=== PATIENT | female | born 1945 | race Caucasian/White ===

== ENCOUNTER → 2018-04-01 | Outpatient (CLI) | payer MEDICARE, BC ==
[~2018-04-01] MED LIST: ALBU90I INH; AMIT10 PO; AMLODIPINE; BECL25NI; CALTRATE PO; CETI5 PO; ENABLEX PO; ESOM20 PO; FAMO20 PO; FEXO60 PO; GARLIC TABS PO; GUAI600T33 PO; L-LYSINE PO; MONT10T PO; MULVITA PO; POTCHL20ER PO; PSORCON; SOLI5 PO; SPIR25 PO; TRIAOI IH; UBID100 PO
== END | disposition home or self-care (01) ==
LOC: PLD 10:30 → LAB SHORT 10:30
DX: D22.5 Melanocytic nevi of trunk (principal)
CPT/HCPCS: 88305

== ENCOUNTER 2018-04-16 12:05 | Day surgery (SDC) | payer MEDICARE, BC ==
[~2018-04-16] VITALS: Ht 147.3 cm; Wt 48.1 kg
[2018-04-16] MEDS ORDERED: ZYRTEC10 M1 PO (13:03)
[2018-04-16] MEDS ORDERED: FLONASE ALLERG9.9 ML (13:04)
[2018-04-16] MEDS ORDERED: POTCHL20ER PO (13:04)
[2018-04-16] MEDS ORDERED: MYRBETRIQ25 MG PO (13:05)
== END 2018-04-16 14:27 | disposition home or self-care (01) ==
LOC: ORSCSDS 12:05
PROVIDERS: Ophthalmology
PROC: 08RJ3JZ Replacement of Right Lens with Synthetic Substitute, Percutaneous Approach (ICD-10-PCS; principal; 2018-04-16 13:30)
DX: H25.11 Age-related nuclear cataract, right eye (principal); I10 Essential (primary) hypertension; Z86.718 Personal history of other venous thrombosis and embolism; Z79.899 Other long term (current) drug therapy
CPT/HCPCS: J2250; J7040; V2632

== ENCOUNTER 2018-04-30 09:40 | Day surgery (SDC) | payer MEDICARE, BC ==
[~2018-04-30] VITALS: Ht 147.3 cm; Wt 47.5 kg
[~2018-04-30 09:40] MED LIST changes: +FLONASE ALLERG9.9 ML; +MYRBETRIQ25 MG PO; +ZYRTEC10 M1 PO
[2018-04-30] MEDS ORDERED: SOLI5 PO (10:19)
== END 2018-04-30 12:04 | disposition home or self-care (01) ==
LOC: ORSCSDS 09:40
PROVIDERS: Ophthalmology
PROC: 08RK3JZ Replacement of Left Lens with Synthetic Substitute, Percutaneous Approach (ICD-10-PCS; principal; 2018-04-30 11:00)
DX: H25.12 Age-related nuclear cataract, left eye (principal); I10 Essential (primary) hypertension; J44.9 Chronic obstructive pulmonary disease, unspecified; K21.9 Gastro-esophageal reflux disease without esophagitis; Z79.899 Other long term (current) drug therapy
CPT/HCPCS: J2250; J3010; J7040; V2632

== ENCOUNTER → 2018-11-17 | Outpatient (CLI) | payer MEDICARE, BC ==
[2018-11-17 12:51] LABS: Adenovirus F 40/41 Not Detected (NOT DETECT); Astrovirus Not Detected (NOT DETECT); Campylobacter Sp Not Detected (NOT DETECT); Cryptosporidium Not Detected (NOT DETECT); Cyclospora Cayetanensis Not Detected (NOT DETECT); E. Coli O157 Not Detected (NOT DETECT); Entamoeba Histolytica Not Detected (NOT DETECT); Enteroaggregative E. coli-EAEC Not Detected (NOT DETECT); Enteropathogenic E. coli-EPEC Not Detected (NOT DETECT); Enterotoxigenic E. coli-ETEC Not Detected (NOT DETECT); Giardia Lamblia Not Detected (NOT DETECT); Norovirus GI/GII Not Detected (NOT DETECT); Plesiomonas Shigelloides Not Detected (NOT DETECT); Rotavirus A Not Detected (NOT DETECT); Salmonella Sp Not Detected (NOT DETECT); Sapovirus Not Detected (NOT DETECT); Shiga Toxin-prod E. coli-STEC Not Detected (NOT DETECT); Shigella/Enteroin E. coli-EIEC Not Detected (NOT DETECT); Vibrio Cholerae Not Detected (NOT DETECT); Vibrio Sp Not Detected (NOT DETECT); Yersinia Enterocolitica Not Detected (NOT DETECT)
[2018-11-18 14:27] LABS: Stool Occult Bld Immuno 1 Negative (NEGATIVE); Stool Occult Bld Immuno 2 Negative (NEGATIVE)
== END | disposition home or self-care (01) ==
LOC: LAB SHORT 12:49 → LAB 12:49
PROVIDERS: Internal Medicine Gastroenterology
DX: R19.7 Diarrhea, unspecified (principal); R10.84 Generalized abdominal pain
CPT/HCPCS: 82274; 87507

== ENCOUNTER 2021-07-03 10:47 | Emergency (ER) | payer MEDICARE, BC ==
[~2021-07-03] VITALS: Ht 147.3 cm; Wt 42.6 kg
[2021-07-03 11:33] LABS: BASOPHILS ABSOLUTE AUTO 0.08 K/mm3 (0.00-0.23); BASOPHILS PERCENT AUTO 3 % (0-2); EOSINOPHILS ABSOLUTE AUTO 0.05 K/mm3 (0.00-0.68); EOSINOPHILS PERCENT AUTO 2 % (0-6); Hematocrit 36.1 % (33.0-51.0); Hemoglobin 12.2 g/dL (11.5-16.0); IMMATURE GRAN ABSOLUTE AUTO 0.01 K/mm3 (0.00-0.10); IMMATURE GRAN PERCENT AUTO 0 % (0-1); LYMPHOCYTES ABSOLUTE AUTO 0.43 K/mm3 (0.84-5.20); LYMPHOCYTES PERCENT AUTO 16 % (21-46); MONOCYTES ABSOLUTE AUTO 0.38 K/mm3 (0.16-1.47); MONOCYTES PERCENT AUTO 14 % (4-13); Mean Corpuscular HGB 32.2 pg (26.0-34.0); Mean Corpuscular HGB Conc 33.8 g/dL (31.5-36.5); Mean Corpuscular Volume 95 fL (80-100); Mean Platelet Volume 9.3 fL (9.1-12.4); NEUTROPHILS ABSOLUTE AUTO 1.74 K/mm3 (1.96-9.15); NEUTROPHILS PERCENT AUTO 65 % (41-73); Platelet Count 165 K/mm3 (150-400); RDW Coefficient Variation 12.6 % (11.7-14.2); RDW Standard Deviation 44.1 fL (35.1-46.3); Red Blood Cell Count 3.79 M/mm3 (3.80-5.20); White Blood Cell Count 2.69 K/mm3 (4.00-11.30)
[2021-07-03 11:47] LABS: Alanine Aminotransfer (ALT/SGP 21 U/L (12-78); Albumin, Blood 3.8 g/dL (3.4-5.0); Albumin/Globulin Ratio 1.3 (0.8-1.8); Alk Phos 65 U/L (50-136); Anion Gap 1 mmol/L (6-16); Aspartate Aminotrans (AST/SGOT 18 U/L (12-37); Bilirubin, Total 0.6 mg/dL (0.1-1.0); Blood Urea Nitrogen 10 mg/dL (8-24); Bun/Creatinine Ratio 20.1 (12.0-20.0); CO2, Blood 43 mmol/L (21-32); Calcium, Blood 8.5 mg/dL (8.5-10.1); Chloride, Blood 81 mmol/L (98-108); Free Thyroxine 1.07 ng/dL (0.70-1.60); Globulin, Blood 2.9 g/dL (2.2-4.0); Glomerular Filtration Rate >60 (60-); Glucose, Blood 129 mg/dL (70-99); Magnesium, Blood 1.7 mg/dL (1.6-2.4); Potassium, Blood 3.4 mmol/L (3.5-5.5); Sodium, Blood 125 mmol/L (136-145); Total Protein, Blood 6.7 g/dL (6.4-8.2)
[2021-07-03] MEDS ORDERED: DIAZEPAM5 M2 PO (13:42)
[2021-07-03] MEDS ORDERED: TOLT2ER PO (13:43)
[2021-07-03] MEDS ORDERED: AMITRIPTYLINE H25 MG PO (13:43)
[2021-07-03 14:49] LABS: SARS-Cov-2 (COVID-19) PCR, MMC NEGATIVE (NEGATIVE)
== END 2021-07-03 15:45 | disposition home or self-care (01) ==
LOC: ER 10:47
PROVIDERS: Emergency Medicine
DX: R00.0 Tachycardia, unspecified (principal); E87.6 Hypokalemia; E22.2 Syndrome of inappropriate secretion of antidiuretic hormone; R39.15 Urgency of urination; R53.1 Weakness; I10 Essential (primary) hypertension; J44.9 Chronic obstructive pulmonary disease, unspecified; Z20.822 Contact with and (suspected) exposure to COVID-19; Z85.3 Personal history of malignant neoplasm of breast; Z91.013 Allergy to seafood; Z88.0 Allergy status to penicillin; Z88.2 Allergy status to sulfonamides; Z91.048 Other nonmedicinal substance allergy status; Z88.5 Allergy status to narcotic agent; Z91.018 Allergy to other foods
CPT/HCPCS: 36415; 71046; 80053; 83735; 84439; 84443; 85025; 93005; 93010; 99285-25; U0004

== ENCOUNTER 2021-07-20 09:46 | Inpatient (IN) | payer MEDICARE, BC ==
[~2021-07-20] VITALS: Ht 152.4 cm; Wt 41.7 kg
[~2021-07-20 09:46] MED LIST changes: +AMITRIPTYLINE H25 MG PO; +DIAZEPAM5 M2 PO; +TOLT2ER PO
[2021-07-20 10:17] LABS: Source, Urine Catheter
[2021-07-20 10:21] LABS: Appearance, Urine Clear (Clear); Bilirubin, Urine Neg (Neg); Blood, Urine 2+ (Neg); Color, Urine Yellow (P-Yellow); Glucose Qualitative, Urine Neg (Neg); Ketones, Urine 1+ (Neg); Leukocyte Esterase, Urine Neg (Neg); Nitrite, Urine Neg (Neg); Protein, Urine 2+ (Neg); Urobilinogen, Urine NORM (Normal)
[2021-07-20 10:28] LABS: White Blood Cells, Urine 0-2 /hpf (0-5)
[2021-07-20 10:29] LABS: Bacteria Few /hpf; Squamous Epithelial Cells Few /hpf (Few)
[2021-07-20 10:32] LABS: BASOPHILS ABSOLUTE AUTO 0.06 K/mm3 (0.00-0.23); BASOPHILS PERCENT AUTO 2 % (0-2); EOSINOPHILS ABSOLUTE AUTO 0.02 K/mm3 (0.00-0.68); EOSINOPHILS PERCENT AUTO 1 % (0-6); Hematocrit 35.4 % (33.0-51.0); Hemoglobin 12.6 g/dL (11.5-16.0); IMMATURE GRAN ABSOLUTE AUTO 0.01 K/mm3 (0.00-0.10); IMMATURE GRAN PERCENT AUTO 0 % (0-1); LYMPHOCYTES ABSOLUTE AUTO 0.41 K/mm3 (0.84-5.20); LYMPHOCYTES PERCENT AUTO 13 % (21-46); MONOCYTES ABSOLUTE AUTO 0.46 K/mm3 (0.16-1.47); MONOCYTES PERCENT AUTO 14 % (4-13); Mean Corpuscular HGB 32.7 pg (26.0-34.0); Mean Corpuscular HGB Conc 35.6 g/dL (31.5-36.5); Mean Corpuscular Volume 92 fL (80-100); Mean Platelet Volume 9.3 fL (9.1-12.4); NEUTROPHILS ABSOLUTE AUTO 2.31 K/mm3 (1.96-9.15); NEUTROPHILS PERCENT AUTO 71 % (41-73); Platelet Count 169 K/mm3 (150-400); RDW Coefficient Variation 12.2 % (11.7-14.2); RDW Standard Deviation 40.9 fL (35.1-46.3); Red Blood Cell Count 3.85 M/mm3 (3.80-5.20); White Blood Cell Count 3.27 K/mm3 (4.00-11.30)
[2021-07-20 11:28] LABS: Alanine Aminotransfer (ALT/SGP 28 U/L (12-78); Albumin/Globulin Ratio 1.3 (0.8-1.8); Alk Phos 69 U/L (50-136); Anion Gap 8 mmol/L (6-16); Aspartate Aminotrans (AST/SGOT 31 U/L (12-37); Bilirubin, Total 0.9 mg/dL (0.1-1.0); Blood Urea Nitrogen 11 mg/dL (8-24); Bun/Creatinine Ratio 23.4 (12.0-20.0); CO2, Blood 43 mmol/L (21-32); Calcium, Blood 8.8 mg/dL (8.5-10.1); Chloride, Blood 70 mmol/L (98-108); Creatinine, Blood 0.47 mg/dL (0.40-1.00); Globulin, Blood 3.1 g/dL (2.2-4.0); Glomerular Filtration Rate >60 (60-); Glucose, Blood 92 mg/dL (70-99); Potassium, Blood 2.9 mmol/L (3.5-5.5); Sodium, Blood 121 mmol/L (136-145); Total Protein, Blood 7.1 g/dL (6.4-8.2)
[2021-07-20] MEDS ORDERED: Amitriptyline H10 MG PO (13:35)
[2021-07-20] MEDS ORDERED: CETI5 PO (13:40)
[2021-07-20] MEDS ORDERED: FAMO20 PO (13:41)
[2021-07-20 14:35] LABS: Base Excess Venous 25.4 mmol/L; Bicarbonate Venous 45.8 mmol/L (24.0-30.0); PCO2 Venous 72.2 mmHg (38-42); pH Blood Venous 7.44 (7.34-7.37)
[2021-07-20 14:50] LABS: SARS-Cov-2 (COVID-19) PCR, MMC NEGATIVE (NEGATIVE)
--- NOTE | 2021-07-20 18:28 | NUR ---
PT TRANSFERRED TO [facility] DEPT APPROX 1645, VERY ANXIOUS & UPSET. PT CLINGING TO PERSONAL MEDICATION LIST BROUGHT FROM HOME. PT TEARFUL AND REPEATING HERSELF, CONCERNED ABOUT NEEDING TO VOID BUT NOT WANTING TO TRANSFER TO BSC OR UTILIZE BEDPAN. PUREWICK IN PLACE, BUT PT CONTINUALLY STRESSING ABOUT POSSIBLE DYSFUNCTION AND WETTING SHEETS. PT REASSURED WITH TWO FEMALE RN AND FEMALE MA, MULTIPLE OPTIONS OFFERED. PUREWICK REPOSITIONED WITH DISPOSABLE AND REUSABLE CHUX UNDER PT FOR PT COMFORT. PT PROVIDED WITH NEW GOWN, FRESH PILLOW & WARM BLANKET, RADIO AND IPAD. 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 MEDICATIONS RECONCILED WITH PT, BUT PT BECAME VERY UPSET, CRYING AND ROCKING BACK IN BED WHEN FORMULARY SUBSTITUTE WAS PROVIDED FOR ONE OF HER MEDS. PT INQUIRING ABOUT PO VS IV SHE "DOES NOT USE IV MEDS AT HOME." PT REORIENTED AND REASSURED THAT HER PCP AND ADMITTING PHYSICIAN WERE ORDERING HER MEDICATIONS WITH HER. PT MEDICATED WITH DIAZAPAM 2.5MG IVP. PT INITIALLY REFUSED DINNER, SHE NEEDED TO "GO OVER MY MEDICATIONS WITH THE RN." MEDICATIONS CONFIRMED WITH PT FOR THIRD TIME, BUT PT NOT AGREEABLE WITH FORM/SUB AND DOSES ORDERED. PT AGREES TO EAT DINNER, WHICH SHE DID INDEPENDENTLY, BUT CONTINUED TO REPEAT MEDICATIONS, USES AND MECHANISM OF ACTION. RN REASSURING AND ATTEMPTING TO CALM PT.
[2021-07-20 21:16] LABS: Anion Gap 4 mmol/L (6-16); Blood Urea Nitrogen 13 mg/dL (8-24); Bun/Creatinine Ratio 18.3 (12.0-20.0); CO2, Blood 43 mmol/L (21-32); Calcium, Blood 8.3 mg/dL (8.5-10.1); Chloride, Blood 74 mmol/L (98-108); Creatinine, Blood 0.71 mg/dL (0.40-1.00); Glomerular Filtration Rate >60 (60-); Glucose, Blood 128 mg/dL (70-99); Sodium, Blood 121 mmol/L (136-145)
--- NOTE | 2021-07-20 21:39 | NUR ---
DR. YI WAS NOTIFIED THAT PT. WANTED TO SPEAK WITH THE DRYenny ABOUT HER MEDS. PER DR. YI AM DRYenny WOULD GO OVER THOSE WITH HER. DR. YI WAS NOTIFIED THAT PT. WAS VERY ANXIOUS ABOUT WANTING HER GUAIFENESIN & ZYRTEC FROM HOME. PER DR. YI THAT WAS OK & OK TO TAKE SAME DOSAGES SHE DID AT HOME. T.O. FOR ZYRTEC LIQUID 5MG P.O. DAILY IN THE EVENING & LIQUID GUIAFENESIN EXPECTORANT 10ML P.O. THREE TIMES DAILY PRN. WAS CALLED & HE BROUGHT HER OWN ZYRTEC & GUAIFENESIN. PHARMACY WAS THEN NOTIFIED. ORDER WAS PUT IN COMPUTER. PER PHARMACY, PT. COULDN'T USE HER OWN GUAIFENESIN SINCE THEY HAD IT AVAILABLE BUT SINCE THEY DIDN'T HAVE LIQUID ZYRTEC IT WAS OK TO USE HER OWN IN WHICH THEY LABELED. DAKOTAH WAS ON HER LIST OF MEDS TO BE GIVEN BUT PT. DIDN'T WANT IT, SHE WANTED HER ZYRTEC. DR. YI WAS ALSO NOTIFIED OF THIS.
--- NOTE | 2021-07-21 02:32 | NUR ---
10ML NACL FLUSH BEFORE & AFTER LASIX. & AFTER POTASSIUM INFUSION WAS COMPLETE.
--- NOTE | 2021-07-21 02:36 | NUR ---
675 URINE OUTPUT FROM PURWICK DEVICE TO SUCTION. PURWICK DEVICE ALSO LEAKS SO LINEN CHANGES WERE DONE & PT.'S SKIN CLEANSED.
--- NOTE | 2021-07-21 03:03 | NUR ---
PT. COUGHING. CHECKED ON PT. PT. GIVEN A FEW SIPS OF WATER. PT. LAYING ON HER RIGHT SIDE. PT. VERBALIZED BEING WARM ENOUGH. CALL LIGHT WITHIN REACH.
--- NOTE | 2021-07-21 03:41 | NUR ---
PT. YELLING OUT "HELP ME, HELP ME." PT. UPSET SAYING SHE WAS CONFUSED SINCE SHE HASN'T SLEPT. PT. WAS SITTING ON COMMODE WHEN WENT TO HER ROOM. PT. REMINDED SHE NEEDED TO CALL WHEN SHE GOT UP. PT.LINENS WERE CLEAN & DRY, PT. HAD JUST LEAKED SOME URINE ON WAY TO COMMODE. DANNIE HOSE & SCD'S REPLACED. PT. WAS CLEANED UP & BACK TO BED. PT. WAS ABLE TO VOID 200ML SLIGHTLY CLOUDY YELLOW URINE. PURWICK REPLACED UNDER PT. CALL LIGHT WITHIN REACH. PT. VERBALIZED NOT NEEDING ANOTHER BLANKET THAT SHE WAS WARM ENOUGH. PT. BACK WITH HER EYES CLOSED WHEN LEAVING HER ROOM.
--- NOTE | 2021-07-21 05:15 | NUR ---
PT. CONTINUES TO SLEEP.
--- NOTE | 2021-07-21 05:42 | NUR ---
BED ALARM GOING OFF. PT. AT BEDSIDE GOING TO GET UP TO COMMODE. PT. ASSISTED UP TO COMMODE. NO URINE OUT. PT. ASSISTED BACK TO BED & WAS ASKING IF I KNEW "PALLAVI & LLUVIA." [facility] ASK PALLAVI & LLUVIA WHO, PT. STATED "PALLAVI & LLUVIA MANDUJANO." I INSTUCTED PT. THAT SHE WAS PALLAVI MANDUJANO. PT. ASKED IF HER WAS HERE IN THE HOSPITAL TOO. PT. INSTRUCTED THAT ONLY SHE WAS. PT. DIDN'T REMEMBER SHE WAS ADMITTED. PT. WAS REMINDED OF EVENTS OF ADMISSION. PT. DOES SAY SHE DOES REMEMBER BUT THEN STATES "I'M LOSING IT." PT. ASKED IF HER HAD CALLED, PT. REMINDED THAT SHE TALKED TO HER LAST NIGHT & THAT HE BROUGHT HER HER MEDS FROM HOME THAT SHE WANTED. PT. FORGETS TO USE CALL LIGHT.
[2021-07-21 05:47] LABS: BASOPHILS ABSOLUTE AUTO 0.07 K/mm3 (0.00-0.23); BASOPHILS PERCENT AUTO 1 % (0-2); EOSINOPHILS ABSOLUTE AUTO 0.04 K/mm3 (0.00-0.68); EOSINOPHILS PERCENT AUTO 1 % (0-6); Hematocrit 35.1 % (33.0-51.0); Hemoglobin 12.4 g/dL (11.5-16.0); IMMATURE GRAN ABSOLUTE AUTO 0.01 K/mm3 (0.00-0.10); IMMATURE GRAN PERCENT AUTO 0 % (0-1); LYMPHOCYTES ABSOLUTE AUTO 0.61 K/mm3 (0.84-5.20); LYMPHOCYTES PERCENT AUTO 12 % (21-46); MONOCYTES ABSOLUTE AUTO 0.69 K/mm3 (0.16-1.47); MONOCYTES PERCENT AUTO 14 % (4-13); Mean Corpuscular HGB 32.7 pg (26.0-34.0); Mean Corpuscular HGB Conc 35.3 g/dL (31.5-36.5); Mean Corpuscular Volume 93 fL (80-100); Mean Platelet Volume 9.5 fL (9.1-12.4); NEUTROPHILS ABSOLUTE AUTO 3.49 K/mm3 (1.96-9.15); NEUTROPHILS PERCENT AUTO 71 % (41-73); Platelet Count 165 K/mm3 (150-400); RDW Standard Deviation 41.5 fL (35.1-46.3); Red Blood Cell Count 3.79 M/mm3 (3.80-5.20); White Blood Cell Count 4.91 K/mm3 (4.00-11.30)
[2021-07-21 06:11] LABS: Alanine Aminotransfer (ALT/SGP 25 U/L (12-78); Albumin, Blood 3.6 g/dL (3.4-5.0); Albumin/Globulin Ratio 1.2 (0.8-1.8); Alk Phos 64 U/L (50-136); Anion Gap 5 mmol/L (6-16); Aspartate Aminotrans (AST/SGOT 29 U/L (12-37); Bilirubin, Total 0.6 mg/dL (0.1-1.0); Blood Urea Nitrogen 11 mg/dL (8-24); Bun/Creatinine Ratio 25.1 (12.0-20.0); CO2, Blood 43 mmol/L (21-32); Calcium, Blood 8.3 mg/dL (8.5-10.1); Chloride, Blood 74 mmol/L (98-108); Creatinine, Blood 0.44 mg/dL (0.40-1.00); Globulin, Blood 2.9 g/dL (2.2-4.0); Glomerular Filtration Rate >60 (60-); Glucose, Blood 85 mg/dL (70-99); Magnesium, Blood 1.8 mg/dL (1.6-2.4); Potassium, Blood 3.6 mmol/L (3.5-5.5); Sodium, Blood 122 mmol/L (136-145); Total Protein, Blood 6.5 g/dL (6.4-8.2)
--- NOTE | 2021-07-21 06:23 | NUR ---
PT. ANXIOUS ABOUT HER MEDICATIONS AT BEGINNING OF SHIFT & NEEDING TO TAKE HER OWN MEDICATIONS WHICH HER LIQUID ZYRTEC & GUAIFENESEN. HAD BROUGHT THOSE 2 MEDICATIONS FROM HOME & PER PHARMACY OK FOR PT. TO USE HER OWN ZYRTEC WHICH PHARMACY DOESN'T HAVE & SHE'S NOT ABLE TO USE HER OWN GUAIFENESEN SINCE PHARMACY HAS IT. PHARMACY LABELED THE ZYRTEC FOR USE HERE AT THE HOSPITAL. PT. ALSO ANXIOUS ABOUT NOT BEING ABLE TO SLEEP & WAS ALREADY WORRYING ABOUT NOT SLEEPING TOMORROW. PT. WAS REMINDED THAT DEALING WITH THE PRESENT WAS WHAT NEEDED TO BE DONE AT THIS TIME. PT. SLEEPING A LITTLE OFF & ON LAST NIGHT AFTER HER HOME MEDICATIONS WERE RESOLVED. PT. WAS NOT ABLE TO REMEMBER TO USE HER CALL LIGHT X2 & WAS TRYING TO GET OOB TO BSC WHEN THE BED ALARM GOES OFF. PT. WOKE UP CONFUSED THIS AM NOT KNOWING WHO SHE WAS OR WHERE SHE WAS AT. PT. WAS REMINDED OF WHO SHE WAS, THE DATE & HOW LONG SHE HAD BEEN HERE AT THE HOSPITAL. PT. STATED "I THINK I'M LOSING IT MORE." PT. THEN WANTED TO GO BACK TO SLEEP WHEN RN TOLD HER IT WAS 5:50 AM.
--- NOTE | 2021-07-21 07:41 | NUR ---
PT DENIED BREAKFAST TRAY AT THIS TIME. SHE WOULD LIKE TO GET SOME SLEEP. TRAY LEFT COVERED AND ON HER BEDSIDE TABLE.
--- NOTE | 2021-07-21 11:16 | NUR ---
ATTEMPTING TO REST. CONTINUES TO BE ANXIOUS. IS INCONTINENT OF URINE AT THIS TIME. HAS REFUSED LINEN AND GOWN CHANGE AT THIS TIME.
--- NOTE | 2021-07-21 12:25 | NUR ---
EATING LUNCH. WAS UNABLE TO CHEW THE HAMBURGER SO A TURKEY SAMDWICH AND STRAWBERRY YOGURT WERE SUBSTITUTED.
--- NOTE | 2021-07-21 13:41 | NUR ---
STILL QUITE ANXIOUS AND NEEDY. EAT WELL BUT DID NOT WANT THE LEFT OVER FOOD REMOVED. SHE IS CONCERNED SHE IS NOT RECEIVING ENOUGH PROTEIN. WAS PROVIDED WITH SOME YOGURT WELL PEANUT BUTTER TO HELP WITH HER CONCERNS.
--- NOTE | 2021-07-21 17:22 | NUR ---
EATING DINNER. LESS ANXIOUS BUT SEEMS TO BE HAVING DIFFICULTY REMEMBERING OUR EARLIER DISCUSSIONS ABOUT POSITIONING. SHE SEEMS TO BE MORE CONFUSED WHEN TASKED WITH DECISION MAKING, TASK OVERLOAD. DID REQUEST 3RD DOSE OF ROBITUSSIN TO AVOID DEVELOPING A COUGH.
--- NOTE | 2021-07-21 18:20 | NUR ---
PT KEPT THIS NURSE BUSY ALL SHIFT WITH HER ANXIETY AND NEEDS. SHE HAS A TOUGH TIME MAKING A DECISSION WHEN TASK LOADED. VSS ALL THROUGHOUT SHIFT. SHE HAS BEEN INCONTINENT OF URINE, NOT EVEN ATTEMPTING TO CALL FOR BEDPAN OR COMMODE. IS CONCERNED ABOUT TAKING DOSE OF RESTORIL THIS NOC. DR. BOLANOS RXD THIS BECAUSE SHE COMPLAINED ABOUT NOT SLEEPING. WANTED TO REFUSE HER PM LASIX BECAUSE IT WOULD CAUSE HER TO URINATE. EXPLAINED REASONING BEHIND LASIX AND SHE AGREED TO TAKE. STILL REMAINS ANXIOUS, ESPECIALLY ABOUT HER MEDICATIONS. DR. BOLANOS PLANNING FOR HER DISCHARGE HOME TOMORROW.
--- NOTE | 2021-07-21 21:39 | NUR ---
PT. C/O HAVING SOME INDIGESTION. PT. INSTRUCTED SHE ONLY HAD ZOFRAN ORDERED. PT. DENIES HAVING NAUSEA. PT. OFFERED SOME YAZ MIST BUT REFUSED. PT. INSTRUCTED THAT MAYBE IF SHE ATE A CRACKER IT WOULD HELP. PT. EATING A CRACKER. PT. WAS ALSO OFFERED ANOTHER SNACK BUT REFUSED.
--- NOTE | 2021-07-21 21:50 | NUR ---
PT. CALLED WITH CALL LIGHT WANTING HER PERICARE DONE. PT. INCONTINENT OF URINE. PT. ABLE TO CALL FOR OTHER NEEDS BUT WILL NOT CALL TO USE COMMODE OR BEDPAN EVEN THOUGH SHE HAS BEEN INSTRUCTED TO DO SO. PT. SKIN CLEANSED WITH WIPES & PULL UPS WITH A LARGE PERIPAD PLACED INSIDE. PT. TURNED TO HER RIGHT SIDE. BEDSIDE TABLE PLACED TO WHERE SHE CAN REACH HER WATER & BELONGINGS. PT. VERBALIZEDS HER INDIGESTION WAS BETTER AFTER EATING CRACKER BUT STILL WORRIED THAT HER GERD WILL CONTINUE. PT. REMINDED THAT SHE WAS GIVEN HER PEPCID EARLIER SO THAT SHOULD HELP. PT. VERBALIZED THAT RN WAS RUSHING HER TO TAKE HER SLEEPING PILL, PT. INSTRUCTED THAT SHE WANTED HER SLEEPING PILL AT 2200, PT. INSTRUCTED IT WAS THAT TIME. PT. REMINDED THAT SHE PROBABLY SHOULDN'T TAKE IT TOO LATE BECAUSE PROBABLY WOULDN'T WANT TO BE TIRED FOR WHEN SHE IS DISCHARGED. RN INSTRUCTED PT. THAT I WOULD CHECK BACK WITH HER AT 23OO & SEE IF SHE WANTED HER SLEEPING PILL THEN.
--- NOTE | 2021-07-21 22:32 | NUR ---
PT. INCONTINENT OF URINE. PERICARE DONE. PULLUPS WITH LARGE PERIPAD PLACED INSIDE CHANGED.
--- NOTE | 2021-07-21 23:07 | NUR ---
PT. CALLED WITH HER CALL LIGHT VERBALIZING SOMETHING ABOUT NURSE TALKING TO HER ABOUT SAFETY. PT. INSTRUCTED EARLIER THAT SHE NEEDED TO USE HER CALL LIGHT IF SHE NEEDED ANYTHING. THEN PT. STARTED VERBALIZING ABOUT SAFETY WITH WORDS & LETTERS. PT. INSTRUCTED NURSE WASN'T SURE WHAT SHE WAS TALKING ABOUT. NURSE INSTRUCTED PT. THAT SHE MIGHT HAVE BEEN DREAMING ABOUT IT. PT.AGREED TO TAKE HER SLEEPING PILL BUT PT. WAS UNABLE TO SWALLOW THE CAPSULE. PHARMACY WAS CALLED & OK TO OPEN IT & PUT IT IN SOME APPLESAUCE. PT. ABLE TO SWALLOW WITH SOME APPLESAUCE.
--- NOTE | 2021-07-21 23:49 | NUR ---
PT. SLEEPING NOW. HOB ELEVATED.
--- NOTE | 2021-07-22 01:33 | NUR ---
PT. COUGHING. BED ALARM GOING OFF & PT. TRYING TO GET OOB. PT.SAYING IT'S TIME TO GET UP. PT. REORIENTED THAT IT WAS 1:00AM. PT. ASSISTED BACK INTO BED WITH 2 ASSIST. THEN PT. VERBALIZED NEEDING TO GO TO THE BR. PT. ASSISTED TO BSC WITH ONE ASSIST. PT. ABLE TO VOID SLIGHTLY CLOUDY YELLOW URINE WITH SOME WHT SEDIMENT IN IT, 200ML. PT. WAS ALSO INCONTINENT OF LARGE AMT. OF URINE IN HER PULL UPS. PT. CLEANSED & PULL UPS WITH LARGE PERIPAD INSIDE CHANGED. PT. MEDICATED WITH HER GUAIFENESEN PER . ORDER. PT. TAKING SIPS OF WATER. CALL LIGHT IS WITHIN REACH. PT. REORIENTED THAT IT WAS 1:00 AM & SHE SHOULD TRY TO GET SOME MORE SLEEP. PT. STATED "OK". BED ALARM ON WITH SIDERAILS UP X3.
--- NOTE | 2021-07-22 02:54 | NUR ---
PT. SLEEPING. COUGHING HAS SUBSIDED.
--- NOTE | 2021-07-22 03:26 | NUR ---
BED ALARM GOING OFF. PT. OBSERVED TRYING TO GET OOB. PT. ASKED WHAT SHE NEEDED. PT. STATED "IT'S TIME TO GET UP." PT. REMINDED IT WAS 3:20 AM. PT. THEN WAS ASKED IF SHE WANTED TO USE THE COMMODE, PT. STATED "YES.", THEN PT. STOOD UP AT BEDSIDE WITH SBA & THEN STATED "I'LL GO BACK TO BED." PT. BACK TO BED LAYING ON HER LEFT SIDE. CALL LIGHT WITHIN REACH. BEDSIDE TABLE POSITIONED SO PT. COULD REACH HER WATER & BELONGINGS. PT. GIVEN A WARM BLANKET. BED ALARM ON & SIDERAILS UP X3.
--- NOTE | 2021-07-22 03:43 | NUR ---
BED ALARM GOING OFF AGAIN. PT. CRAWLING OOB. PT. VERBALIZES WANTING TO GET UP. PT. AGAIN REMINDED THAT IT WAS 3:30 AM. PT. THEN SAID SHE NEEDED TO USE THE BATHROOM. PT. WITH SBA UP TO COMMODE. PT. PULL UPS DRY. PT. VOIDED 225ML SLIGHTLY CLOUDY URINE. PT. WITH CALL LIGHT WITHIN REACH. BEDSIDE TABLE WITHIN REACH. SCD'S & DANNIE HOSE ON. BEDALARM ON. PT. NOW LAYING ON HER RIGHT SIDE.
--- NOTE | 2021-07-22 05:47 | NUR ---
PT. SLEEPING WHEN LAB HERE DRAWING HER BLOOD. VITALS TAKEN WITHOUT PT. WAKING UP. PT. THEN SHOOK BY RN, SAYING HER NAME. PT.STIRRED A LITTLE. PT. UP OFF & ON T.O. NIGHT AFTER GIVEN SLEEPING PILL. PT. CONFUSED OFF & ON TRYING TO CRAWL OOB AT TIMES. PT. UP TO BSC WITH ASSIST X2 DURING THE NIGHT WITH ALSO BEING INCONTINENT. BED ALARM ON. CALL LIGHT IS WITHIN REACH.
--- NOTE | 2021-07-22 06:10 | NUR ---
BED ALARM GOING OFF. PT. CRAWLING OOB. PT. VERBALIZES TIME TO GET UP. PT. REMINDED IT IS 600 IN THE MORNING & IT'S NOT TIME TO GET UP YET. PT. TRYING MULTIPLE TIMES TO CRAWL 00B THIS AM EVEN WHEN TOLD WHERE SHE WAS & WE DIDN'T WANT HER TO FALL. OFFERED PT. TO GET UP TO A CHAIR & PT. DIDN'T WANT TO.
--- NOTE | 2021-07-22 06:15 | NUR ---
PT. REPOSITIONED HERSELF ON HER RIGHT SIDE. PULL UPS DRY. PT. WAS ALSO SCOOTED UP IN BED WITH 2 NURSE BOOST. HOB ELEVATED.
[2021-07-22 06:16] LABS: Anion Gap 6 mmol/L (6-16); Blood Urea Nitrogen 11 mg/dL (8-24); Bun/Creatinine Ratio 23.3 (12.0-20.0); CO2, Blood 43 mmol/L (21-32); Calcium, Blood 7.9 mg/dL (8.5-10.1); Chloride, Blood 68 mmol/L (98-108); Creatinine, Blood 0.47 mg/dL (0.40-1.00); Glomerular Filtration Rate >60 (60-); Glucose, Blood 82 mg/dL (70-99); Potassium, Blood 3.1 mmol/L (3.5-5.5); Sodium, Blood 117 mmol/L (136-145)
--- NOTE | 2021-07-22 06:26 | NUR ---
DR. EVERETT CALLED BY [facility] TO NOTIFY OF CRITICAL LOW SODIUM LEVEL OF 117. NO ANSWER. MESSAGE LEFT FOR DR. EVERETT OF NUMBER TO CALL BACK ON AT [facility] [phone].
--- NOTE | 2021-07-22 06:33 | NUR ---
DR. EVERETT RETURNED PHONE CALL TO [facility] WITH ORDERS TO START NS 0.9% AT 150ML/HR.
--- NOTE | 2021-07-22 07:14 | NUR ---
ASSUMING CARE. PT WITH CRITICAL LOW SODIUM AND NEW ORDER FOR NORMAL SALINE IV. IV STARTED AT 0700. PT ATTEMPTING TO GET OUT OF BED. REDIRECTED AND BED ALRAM SET.
--- NOTE | 2021-07-22 09:34 | NUR ---
STATES SHE IS NOT FEELING WELL. UNABLE TO BE MORE SPECIFIC. DENIES ANY PAIN, NAUSEA, DIZZINESS OR OTHER SYMPTOMS. SHE NOTES IT'S NOTHING SPECIFIC SHE CAN DESCRIBE. RESTING COMFORTABLY AFTER EATING MOST OF HER BREAKFAST. CALL LIGHT WITHIN REACH. BED ALARM STILL ON.
--- NOTE | 2021-07-22 11:44 | NUR ---
VISIT WITH DR. BOLANOS. HE IS GOING TO FLUID RESTRICT PALLAVI TO 1,000ML BY MOUTH AND DISCONTINUE HER IV FLUIDS ONCE THE BAG IS COMPLETED. PALLAVI WAS TEARFUL ABOUT THE RESTRICTION SHE FELT IT WAS NIGHT AND THIS WOULD MAKE HER DEHYDRATED. ONCE I EXPLAINED IT WAS STILL IN THE AM AND HER SODIUM DROPPED A RESULT OF HER FLUID INTAKE YESTERDAY SHE SETTLED DOWN. PALLAVI DOES UNDERSTAND THE NEED FOR FLUID RESTRICTION WITH HER SAIDH. MOOD NOW IMPROVED AND IS TALKING WITH HER ON THE PHONE AND EATING LUNCH.
--- NOTE | 2021-07-22 13:26 | NUR ---
UP ON COMMODE SEVERAL TIMES. HAS ONLY BEEN INCONTINENT OF URINE ONCE. USING A WALKER WE WALKED SEVERAL FEET INTO THE HALLWAY. DID FATIGUE EASILY. WAS CONCERNED ABOUT HER O2 SAT AND PULSE. BIOX PLACED REASSURANCE TO PATIENT. WAS PROVIDED WITH SUPPLIERS FOR ORAL CARE AND HAIR CARE. IS NOW TRYING TO REST. SHE SEEMS TO HAVE MORE CONFUSION SHE BECOMES FATIGUED.
--- NOTE | 2021-07-22 13:41 | NUR ---
SPOKE WITH DR. BOLANOS ABOUT ORDER FOR NS STILL PENDING. THIS NEEDS TO BE DISCONTINUED PT IS FLUID RESTRICTED AND HAS ALREADY RECEIVED NS. ORDER DC'D.
--- NOTE | 2021-07-22 14:58 | NUR ---
REMAINS CONFUSED. IS ABLE TO GRAASP MEDICAL CONCEPTS BUT NEEDS DIRECTION TO WHAT SHE SHOULD BE DOING. SHE COULD NOT DECIDE IF SHE SHOULD BE EATING OR SLEEPING UNTIL ASKED IF SHE WAS TIRED OR HUNGRY. IS HAVING A SNACK OF PEANUT BUTTER AND SALTINES.
--- NOTE | 2021-07-22 16:28 | NUR ---
UP IN RECLINER AND TO SUN ROOM. PT SEEMED TO ENJOY LOOKING OUT THE WINDOW BUT WAS CONSTANTLY CONCERNED ABOUT HER O2 SATS OR THE POTENTIAl NEED FOR A COMMODE. DOES HAVE SOME PAIN ALONG THE BONY PROMINCE OF HER LLE. PAS STOCKINGS REMOVED FOR NOW AND PT EDUCATED ON EXERCISES FOR HER CALF MUSCLE. WILL RE-EVALUATE.
--- NOTE | 2021-07-22 17:57 | NUR ---
CONFUSION HAS REMAINED CONSISTANT ALL DAY. HAVE HAD DIFFICULTY AT TIMES UNDERSTANDING WHAT SHE IS TRYING TO EXPRESS. SHE DOES GET UPSET WHEN SHE HAS DIFFICULTY EXPRESSING. SEEMS LESS ANXIOUS OVERALL. GRASPS MEDICAL CONCEPTS BUT SEEMS TO HAVE DIFFICULTY MAKING SMALL DECISIONS. HAVE HAD TO REITERATE HER FLUID RESTRICTION, SHE IS TRYING TO NOT DRINK ANY FLUIDS. MOSTLY TO COMMODE BUT HAS BEEN INCONTINENT AT TIMES. DR. LUIS MIGUEL GANDARA TO DISCHARGE HER TO HOME TOMORROW. VSS THROUGHOUT SHIFT.
--- NOTE | 2021-07-22 20:59 | NUR ---
DR. EVERETT CALLED BY [facility] & NOTIFIED THAT DAY SHIFT OBSERVED URINE BEING CLOUDY WITH SEDIMENT & THAT ALSO PT. HAD JUST VOIDED & WAS CLOUDY BUT NO SEDIMENT. ALSO NOTIFIED THAT PT. CONFUSED OFF & ON. DR. EVERETT ORDERED A UA, UA WAS TAKEN TO LAB BY [facility].
--- NOTE | 2021-07-22 21:19 | NUR ---
PT. BP HIGH 194/98. PT. STATES "I'M NOT VERY RELAXED, I'M ANXIOUS." WILL MEDICATE WITH SLEEPING PILL & WILL RECHECK BP.
[2021-07-22 21:21] LABS: Source, Urine Voided
--- NOTE | 2021-07-22 21:30 | NUR ---
PT. ASKED IF ANY PAIN, PT. COULDN'T REALLY EXPRESS HERSELF ONE WAY OR ANOTHER. PT. DID MENTION IF PRIOR NURSE HAD TOLD ME ABOUT HER LEGS BEING TENDER ON SONAL AREAS. PT. INSTRUCTED NURSE DID MENTION IT. ASKED PT. 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 STATED "WELL I DON'T KNOW."
[2021-07-22 21:38] LABS: Bilirubin, Urine Neg (Neg); Blood, Urine 3+ (Neg); Color, Urine Yellow (P-Yellow); Glucose Qualitative, Urine Neg (Neg); Ketones, Urine Neg (Neg); Leukocyte Esterase, Urine 2+ (Neg); Nitrite, Urine Neg (Neg); Protein, Urine 2+ (Neg); Specific Gravity, Urine 1.015 (1.003-1.022); Urobilinogen, Urine NORM (Normal)
[2021-07-22 21:45] LABS: Appearance, Urine Cloudy (Clear)
[2021-07-22 21:46] LABS: Amorphous Mod (0-Heavy); Bacteria Mod /hpf; Squamous Epithelial Cells Few /hpf (Few); White Blood Cells, Urine 25-50 /hpf (0-5)
--- NOTE | 2021-07-22 22:40 | NUR ---
PT. SLEEPING. RECHECKED BP WITHOUT WAKING UP PT. BP 106/61. PRIOR BP'S ELEVATED AT 184/95, RECHECKED 2119 194/98, NOW 2240 106/61.
--- NOTE | 2021-07-22 23:32 | NUR ---
PT. CONTINUES TO SLEEP.
--- NOTE | 2021-07-23 00:30 | NUR ---
BED ALARM GOING OFF. PT. WITH LEGS OVER SIDERAILS. PT. VERBALIZING WANTING TO GET UP. PT. ASKED IF SHE NEEDED TO USE THE COMMODE, PT. VERBALIZED YES. PT. UP TO BSC WITH ASSIST. PT. VOIDED 200ML SLIGHTLY CLOUDY YELLOW URINE WITH SOME SEDIMENT. PT. ASSISTED BACK TO BED. BED ALARM SET AGAIN. PT. REMINDED TO USE THE CALL LIGHT WHEN SHE NEEDED SOMETHING. PT. INSTRUCTED ON WHERE HER CALL LIGHT WAS.
--- NOTE | 2021-07-23 01:12 | NUR ---
PT. SLEEPING, LAYING ON LEFT SIDE.
--- NOTE | 2021-07-23 01:46 | NUR ---
PT. SLEEPING ON LEFT SIDE.
--- NOTE | 2021-07-23 02:52 | NUR ---
PT. CONTINUES SLEEPING. PT. LAYING ON HER LEFT SIDE.
--- NOTE | 2021-07-23 03:51 | NUR ---
PT. CONTINUES SLEEPING. PT. LAYING ON HER LEFT SIDE.
--- NOTE | 2021-07-23 04:59 | NUR ---
LAB HERE DRAWING LABS. PT. SLEPT THROUGH LAB DRAW. VITALS DONE & THEN PT. STARTED WAKING UP. PT. COVERS REPOSITIONED ON PT. PT. BACK TO SLEEP.
[2021-07-23 05:47] LABS: Blood Urea Nitrogen 10 mg/dL (8-24); Bun/Creatinine Ratio 19.5 (12.0-20.0); CO2, Blood 43 mmol/L (21-32); Calcium, Blood 8.2 mg/dL (8.5-10.1); Chloride, Blood 76 mmol/L (98-108); Creatinine, Blood 0.51 mg/dL (0.40-1.00); Glomerular Filtration Rate >60 (60-); Glucose, Blood 76 mg/dL (70-99); Potassium, Blood 3.3 mmol/L (3.5-5.5)
--- NOTE | 2021-07-23 06:04 | NUR ---
WENT INTO PT. ROOM THIS AM. PT. HAD HER O2 OUT OF HER NOSE. O2 PLACED BACK ON. PT. USES 2L/NC HERE. PT. IS ON 2L/NC ALSO AT HOME. ASKED PT. THIS AM IF SHE NEEDED TO USE THE BR, PT. STATES "I'M OK." PT. HAS BEEN SLEEPING MOST OF NIGHT AFTER SLEEPING PILL GIVEN. 0030 BED ALARM GOING OFF, PT. TRYING TO CRAWL OOB. PT. ASSIST UP TO COMMODE TO VOID. PT. HAS BEEN SLEEPING SINCE. PT. EVEN SLEPT THROUGH HER BLOOD DRAW THIS AM & STIRRED A LITTLE WHILE VITALS BEING TAKEN THIS AM. PT.VERBALIZES WARM ENOUGH AT THIS TIME. BED ALARM REMAINS ON & CALL LIGHT IS WITHIN REACH. PT. WAS ANXIOUS AT BEGINNING OF SHIFT & HAS TO REALLY THINK ABOUT TASKS SHE WANTS TO DO & SOMETIMES DOESN'T KNOW WHAT SHE WANTS TO DO. PT. AT TIMES HAS A HARD TIME TRYING TO GET WORD/THOUGHTS OUT & GETS FRUSTRATED & A LITTLE TEARFUL. PT. ORIENTED TO WHAT WAS BEING DONE, LIKE WHAT MEDS WERE BEING GIVEN, DOSAGES OF MEDS BEING GIVEN. PT. UP TO COMMODE X2 T.O. NIGHT & A LITTLE LEAKAGE ON HER ATTENDS(PULL UPS) FIRST TIME UP TO COMMODE, OTHERWISE HAS BEEN CONTINENT. PT. HAS DONE WELL WITH HER FLUID RESTRICTION T.O. NIGHT. PT. WAS REMINDED THAT THAT WAS ALL THE FLUIDS SHE COULD HAVE DURING THE NIGHT.
[2021-07-23 07:05] LABS: Anion Gap 0 mmol/L (6-16); Sodium, Blood 119 mmol/L (136-145)
--- NOTE | 2021-07-23 11:07 | NUR ---
DR. MACHUCA'S OFFICE CALLED APPROX [phone] CON[address]. PALMA. THIS RN SPOKE WITH TAZ AT THE OFFICE REQUESTING CONSULTATION.
--- NOTE | 2021-07-23 11:22 | NUR ---
PT'S SPOUSE, LLUVIA, CALLED REQUESTING UPDATE. UPDATE PROVIDED, QUESTIONS ANSWERED. LLUVIA STS CONFUSION ONSET APPROX 1 WEEK AGO, PRIMARILY AT NIGHT. PT BEGAN UTILIZING A FWW APPROX 3 WEEKS AGO, AND DID WELL WITH IT. ALSO MENTIONS THAT PT WAS ON A FLUID RESTRICTION AT HOME OF APPROX 1500ML/DAY PER DR. MACHUCA & THAT THE PT'S SODIUM LEVEL OF 127 WAS "HER BASELINE." SPOUSE VERY PLEASANT AND CALM, GOOD HISTORIAN AND INQUIRING ABOUT DISCHARGE DATE. RN TO UPDATE SPOUSE UPON NEW INFO PROVIDED.
--- NOTE | 2021-07-23 13:12 | NUR ---
PT CONTINUES TO BE VERY ARGUMENTATIVE, REFUSING TO FOLLOW REQUESTS SHE STS SHE HAS OTHER THINGS TO TAKE CARE OF, BUT CANNOT RECALL. PT VERY RESISTANT TO ALL SUGGESTED ACTIVITY, INCLUDING ALL TASKS SHE HAS REQUESTED. PT APPREHENSIVE TO WEAR PANTS, BUT STS SHE MUST IN FRONT OF MALE CARE PROVIDERS. PANTS TEMPORARILY HEMMED, BUT PT INSISTS THEY WILL BE TOO LONG. ROOM AND BEDSIDE TABLE SANITIZED PER REQUEST, PERSONAL ITEMS CLEANED, & BAGGED PER REQUEST.
--- NOTE | 2021-07-23 13:36 | NUR ---
PHYSICAL THERAPY IN TO SEE PT; PT RELUCTANT TO WORK WITH HIM SHE STS SHE IS NOT PHYSICALLY ABLE TO AT THIS TIME. REASSURED PT THAT PHYSICAL THERAPIST WOULD KEEP HER SAFE. PT AGREED TO ATTEMPT. THERAPIST STS PT WAS VERY COMPLIANT AND DID WELL FOLLOWING INSTRUCTIONS. SEE NOTES FOR RECOMMENDATIONS.
--- NOTE | 2021-07-23 15:12 | NUR ---
PT VERY CONCERNED ABOUT FLUID RESTRICTION, WORRIED THAT SHE WILL GO OVER, OR NOT HAVE ENOUGH FLUIDS ALLOWED TO TAKE PM MEDICATIONS. PHYSICAL THERAPIST, TWO DIRECTOR PRIVATE MUSIC THERAPY AGENCY & TWO MA ALL ENCOURAGING, EDUCATING & REASSURING PT THAT WE ARE MEASURING HER INTAKE & SHE HAS PLENTY REMAINING. PT ENCOURAGED TO DRINK PROTEIN SHAKE, FOOD INTAKE HAS NOT BEEN ADEQUATE.
--- NOTE | 2021-07-23 16:56 | NUR ---
PT CONTINUES TO BE CONFUSED, ATTEMPTING TO SPEAK BUT CAN'T FIND THE WORDS. PT LISTING VARIOUS LETTER NAMES, E.I. "Q. U. A. T." CONTINUES TO TALK ABOUT "FORMULA" AND THE DIFFERENT LETTERS "E, E, K" THAT SHE IS WORRIED WILL BE REMOVED WITHOUT HER PERMISSION WHICH WILL UPSET HER NIGHT TIME MEDICATIONS. PT REASSURED HER MEDICATIONS WILL BE ADMINISTERED ORDERED & NEEDED. RN AND MA CONTINUALLY COMORTING PT, ATTEMPTING TO UNDERSTAND WHAT SHE'S TRYING TO COMMUNICATE. PT SWITCHES FROM FRUSTRATED TO TEARFUL, VERBALIZING, "I'M SO WORRIED. THIS ISN'T GOOD. MY STRESS." WHEN OFFERED HER DIAZAPAM, PT DECLINES BECAUSE SHE "IS ON A FLUID RESTRICTION."
--- NOTE | 2021-07-23 17:55 | NUR ---
FROM EMAR: PT SWITCHING FROM ARGUMENTATIVE BUT NOT MAKING SENSE, TO TEARFUL & SCARED. PT REASSURED, COMFORTED. PT STS WANTS TO TAKE RELAX MEDICATION BUT CAN'T D/T FLUID RESTRICTION. PT VERY CONFUSED & SCARED, ARGUING STATING SHE ISN'T ABLE TO TAKE MEDICATIONS D/T FLUID INTAKE; PT NOT MAKING SENSE, SPEAKING ALMOST WORD SALAD. PT ARGEES TO TAKE MEDICATIONS AFTER 60+ MINS OF REASSURING & REORIENTING.
--- NOTE | 2021-07-23 21:59 | NUR ---
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 HONGRN AND LISETRN TRIED TO MAKE PT UNDERSTAND THAT SHE WOULD HAVE PLENTY OF PO FLUIDS TO TAKE HER MEDICATIONS BUT PT DOES NOT SEEM ABLE TO UNDERSTAND. RN'S HAVE SPENT APPROXIMATELY 50 MINUTES TRYING TO EXPLAIN TO THE PT. PT CONTINUES TO REFUSE TO TAKE PO MEDICATIONS.
--- NOTE | 2021-07-23 22:44 | NUR ---
RN ATTEMPTED TO GET PATIENT TO TAKE PO MEDICATIONS. PATIENT STILL REFUSES DO TO HER BELIEF THAT SHE DOES NOT HAVE ENOUGH PO FLUIDS FOR THE EVENING.
--- NOTE | 2021-07-24 01:51 | NUR ---
PT CALLED TO USE BEDPAN AND THEN TOLD MA THAT SHE HAS HEARTBURN AND WOULD LIKE AN ANTACID. RN INTO SPEAK WITH PT, PT WANTED TO KNOW IF SHE HAD ALREADY TAKEN AN ANTACID, RN EXPLAINED THAT THE PT REFUSED ALL HER NIGHT TIME MEDICATIONS. SHE APPEARS TO BE VERY LUCID AT THIS TIME AND EXPLAINED THAT SHE UNDERSTOOD WE WERE NOT COMMUNICATING WELL WITH EACH OTHER AND DID NOT UNDERSTAND WHAT EACH OF US WAS TRYING TO EXPLAIN ABOUT HER PO FLUIDS. RN OVERRODE PYXIS AND REMOVED FAMOTIDINE FOR PT. PT VERY APPRECIATIVE. 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 PT VERBALIZES UNDERSTANDING AT THIS TIME.
--- NOTE | 2021-07-24 05:48 | NUR ---
PT APPEARED VERY CONFUSED AT BEGINNING OF SHIFT. 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 PT REFUSED HER NIGHT MEDICATIONS. PT SLEPT TILL ABOUT 0100 AND APPEAR EXCEPTIONALLY LUCID AT THAT TIME. PT WAS ABLE TO DESCRIBE THE CONVERSATION SHE HAD WITH THE RN REGARDING FLUID RESTRICTIONS AND THAT "WE" WERE NOT UNDERSTANDING EACH OTHER. AT THIS TIME SHE STATED SHE HAD HEARTBURN AND WOULD LIKE AN ANTACID, RN INFORMED HER THAT SHE REFUSED HER PEPCID EARLIER, PT WAS AGREEABLE TO TAKING IT AT THIS TIME. PT SAT UP FOR SHORT PERIOD OF TIME AND THEN SLEPT THROUGH THE REST OF THE NIGHT.
[2021-07-24 06:36] LABS: Albumin, Blood 3.1 g/dL (3.4-5.0); Anion Gap 1 mmol/L (6-16); Blood Urea Nitrogen 10 mg/dL (8-24); Bun/Creatinine Ratio 20.1 (12.0-20.0); CO2, Blood 41 mmol/L (21-32); Calcium, Blood 8.4 mg/dL (8.5-10.1); Chloride, Blood 80 mmol/L (98-108); Glomerular Filtration Rate >60 (60-); Glucose, Blood 81 mg/dL (70-99); Potassium, Blood 4.4 mmol/L (3.5-5.5); Sodium, Blood 122 mmol/L (136-145)
--- NOTE | 2021-07-24 14:56 | NUR ---
SEE ADL FOR FULL NOTES R/T AM SHOWER & CARE. PT AMBULATED TO SHOWER, TOLERATED WELL. W/C BACK TO ROOM D/T FATIGUE. PT COGNITION HAS IMPROVED THIS AM, MORE INCLINED TO LISTEN TO EDUCATION & RATIONALE R/T CARE. HOWEVER, AFTER LUNCH, PHYSICAL THERAPY CAME, THEN DR. MILLER & THEN DR. MACHUCA. PT BECAME VERY OVERWHELMED AND BECAME VERY ANXIOUS. PT VERBALLY EXPRESSING HER ANXIETY & WORRIES BUT UNABLE TO PINPOINT CAUSE OR EXACT CONCERN. RDN MEHREEN CHERELLE TO ROOM, WITNESSING FRANTIC BEHAVIOR, VERBALIZING TO RDN "WORRIED". AFTER MUCH DISCUSSION & EDUCATION, PT AGREED TO TAKE PO DIAZAPAM FOR ANXIETY, PT TAKES IT AT HOME. PT CONTINUES TO BE AGRESSIVELY CONCERNED ABOUT ALL ISSUES, INCLUDING BUT NOT LIMITED TO, SOCKS, PENCILS, BOTH SETS OF GLASSES, FLUID RESTRICTION, BEDSIDE TABLE TIDINESS, DOUBLE CHUX PADS, BSC, AMBULATION, FEAR OF DVT D/T NOT WEARING SCD WHILE ON BSC. PT CONTINUALLY REASSURED & EDUCATED BY SEVERAL RN'S, ORT'S, AND MA'S.
--- NOTE | 2021-07-24 15:36 | NUR ---
RETURNED PHONE CALL TO PT'S SPOUSE THIS AFTERNOON TO UPDATE ON PROGRESS. SPOUSE HAS MEDICAL BACKGROUND, AND IS VERY UNDERSTANDING & CALM WHILE DISCUSSING 'S STATUS. THIS RN CALLED SPOUSE 2ND TIME THIS AFTERNOON AFTER PHYSICIANS HAD ROUNDED, AND UPDATED WITH PLAN TO KEEP PT FOR ANOTHER NIGHT TO CONFIRM PT'S Na & K+ ARE TRENDING IN THE CORRECT DIRECTION & ARE IN A STABLE ZONE.
--- NOTE | 2021-07-24 16:57 | NUR ---
ORT/MA & RN AT BEDSIDE ATTEMPTING TO COMFORT & REASSURE PT. PT STS "MY ANXIETY IS GROWING. IT'S BEEN GROWING SINCE THE DOCTORS WERE HERE." UPON FURTHER INQUIRY, PT VERBALIZES CONCERN REGARDING D/C OF AMITRIPTYLINE, SHE & HER PCP HAD PREVIOUSLY BEEN TAPERING THIS MEDICATION DOWN IN PLANS TO STOP COMPLETELY. PT CONCERNED STOPPING IMMEDIATELY WILL BE DEADLY. 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 REMINDED PT THAT SHE HAD TAPERED WELL OVER 7-9 MONTHS, AND WAS CURRENTLY ON A LOW DOSE (15MG AT HOME). OTHER ASPECTS OF ANXIETY & WORRIES ADDRESSED, ATTEMPTING TO COMFORT PAIN AND PROVIDE RESPITE. PT DECLINES RADIO, MOVIE, IPAD. PT EDUCATED ON HOME HEALTH RN UPON DISCHARGE, AND WAYS THAT HH RN WILL BE ABLE TO ASSIST HER AT HOME. PT APPEARS TO CALM A BIT, BUT STILL VERBALIZING CONCERNS AND CLUTCHES CALL LIGHT "IN CASE I NEED YOU." PT REASSURED THAT STAFF WILL COME WHEN CALLED.
--- NOTE | 2021-07-24 18:44 | NUR ---
PT EMOTIONS VERY UP AND DOWN THIS AFTERNOON/EVENING. PT AGAIN VERBALIZING CONCERNS R/T ELECTROLYTES AND PROTEIN INTAKE. EDUCATED AND REINFORCED TEACHING R/T INTAKE, BOTH FLUIDS & FOOD. PT STS SHE IS FULL & CANNOT EAT MORE DINNER, BUT WANTS TO LEAVE IT WITH HER. PT OFFERED CLEAR ENSURE, PT HAS PREVIOUSLY DECLINED ORIGINAL ENSURE SHAKE D/T IT CAUSING LOOSE STOOLS. PT VERY UPSET TEARFUL, CRYING OUT FOR HELP BUT UNABLE TO VERBALIZE REQUESTS OR PROBLEMS.
--- NOTE | 2021-07-24 21:31 | NUR ---
PT VERY COOPERATIVE TONIGHT, SHE AGREED TO TAKE ALL HER EVENING MEDICATIONS. CALL LIGHT WITHIN REACH.
--- NOTE | 2021-07-24 22:57 | NUR ---
PT REMAINS CONFUSED AND EVEN ADMITS THAT SHE IS VERY CONFUSED. CONTINUES TO BE COOPERATIVE WITH ALL NURSE REQUESTS. CALL LIGHT WITHIN REACH.
--- NOTE | 2021-07-25 04:24 | NUR ---
PT AWAKE AND NEEDS TO USE THE BR. PT WANTED TO WALK TO THE BR, WALKER PROVIDED WITH SBA TO BR. PT URINATED LIGHT YELLOW URINE AND WALKED BACK TO BED WITH SBA. PT VERY LUCID, COOPERATIVE, AND POLITE THIS MORNING. 02 PLACED BACK ON PT, CALL LIGHT WITHIN REACH.
--- NOTE | 2021-07-25 05:33 | NUR ---
PT REMAINED CONFUSED DURING SHIFT BUT WAS VERY COOPERATIVE WITH ALL RN REQUESTS. PT TOOK ALL PM MEDICATIONS. SHE RESTED THROUGHOUT NIGHT, AT APPROXIMATELY 0400 PT WANTED TO USE BR. SBA WITH WALKER. PT BACK TO BED WITH SNACK. NO ISSUES THIS EVENING. CALL LIGHT WITHIN REACH.
[2021-07-25 06:00] LABS: Hematocrit 36.9 % (33.0-51.0)
[2021-07-25 06:20] LABS: Anion Gap 4 mmol/L (6-16); Blood Urea Nitrogen 10 mg/dL (8-24); Bun/Creatinine Ratio 21.1 (12.0-20.0); CO2, Blood 42 mmol/L (21-32); Chloride, Blood 77 mmol/L (98-108); Creatinine, Blood 0.47 mg/dL (0.40-1.00); Glomerular Filtration Rate >60 (60-); Glucose, Blood 122 mg/dL (70-99); Potassium, Blood 3.6 mmol/L (3.5-5.5); Sodium, Blood 123 mmol/L (136-145)
--- NOTE | 2021-07-25 10:10 | NUR ---
PT IS HAVING MUCH ANXIETY TODAY WELL CONFUSION. SHE MENTIONED GOD, SO WE TALKED ABOUT GOD BEING IN CONTROL AND TRUSTING HIM. AFTER SOME TIME, SHE STATES THAT SHE REALIZED THAT GOD IS IN CONTROL AND WILL TAKE CARE OF HER. SHE TOOK HER MORNING MEDICATIONS- CRUSHED THEN MIXED WITH LIQUID. DR. MILLER CAME IN TO SEE PT AND INFORMED HER OF BEING DISCHARGED TODAY. AFTER TALKING ABOUT SPECIFIC DETAILS, PT ANXIETY RETURNED. EARLIER SHE MENTIONED THAT SHE WAS HAVING PAIN IN HER LEGS BUT REFUSED TO TAKE TYLENOL FOR PAIN. FEARFUL THAT TYLENOL WOULD DEPLETE HER ELECTROLYTES.
[2021-07-25] MEDS ORDERED: CIPR250 PO (11:39)
[2021-07-25] MEDS ORDERED: POTCHL20ER PO (11:40)
[2021-07-25] MEDS ORDERED: TEMA15 PO (11:40)
--- NOTE | 2021-07-25 16:07 | NUR ---
DISCHARGE SUMMARY PT D/C TO SPOUSE VIA W/C. DISCUSSED DISCHARGE INSTRUCTIONS WITH SPOUSE & PT, ANSWERED QUESTIONS & PROVIDED WRITTEN COPY. MEDICATIONS CALLED INTO [facility] PER PT'S REQUEST. CONFIRMED WITH SPOUSE. PERSONAL BELONGINGS RETURNED, INCLUDING MEDICATIONS.
== END 2021-07-25 15:35 | disposition home or self-care (01) | DRG 644 ==
LOC: ER 09:46 → MEDS 09:47 → ORSCIP 17:04
PROVIDERS: Emergency Medicine; Internal Medicine; Nurse Practitioner Acute Care; ADMIT Internal Medicine
DX: E22.2 Syndrome of inappropriate secretion of antidiuretic hormone (principal); I48.20 Chronic atrial fibrillation, unspecified; N39.0 Urinary tract infection, site not specified; J45.909 Unspecified asthma, uncomplicated; I10 Essential (primary) hypertension; Z96.641 Presence of right artificial hip joint; K21.9 Gastro-esophageal reflux disease without esophagitis; E87.6 Hypokalemia; J44.9 Chronic obstructive pulmonary disease, unspecified; E87.8 Other disorders of electrolyte and fluid balance, not elsewhere classified; Z20.822 Contact with and (suspected) exposure to COVID-19; F03.90 Unspecified dementia, unspecified severity, without behavioral disturbance, psychotic disturbance, mood disturbance, and anxiety; F41.9 Anxiety disorder, unspecified; T43.015A Adverse effect of tricyclic antidepressants, initial encounter; J84.10 Pulmonary fibrosis, unspecified; I87.8 Other specified disorders of veins; B95.2 Enterococcus as the cause of diseases classified elsewhere; Z88.6 Allergy status to analgesic agent; Z91.041 Radiographic dye allergy status; Z88.5 Allergy status to narcotic agent; Z88.0 Allergy status to penicillin; Z88.2 Allergy status to sulfonamides; Z91.013 Allergy to seafood; Z88.8 Allergy status to other drugs, medicaments and biological substances; Z91.018 Allergy to other foods; Z91.048 Other nonmedicinal substance allergy status; Z85.3 Personal history of malignant neoplasm of breast; Z90.89 Acquired absence of other organs; Z98.890 Other specified postprocedural states; Z99.81 Dependence on supplemental oxygen; Z98.51 Tubal ligation status; Z79.899 Other long term (current) drug therapy
CPT/HCPCS: 36415; 51701; 71045; 80048; 80053; 80069; 81001; 82570; 82803; 83735; 83880; 83930; 83935; 84156; 84300; 84550; 85014; 85018; 85025; 87077; 87086; 87186; 93306; 96365; 96366; 97110; 97112; 97161; 99285-25; A9270; J1940; J3360; J3475; J3480; U0004

== ENCOUNTER → 2021-07-30 | Outpatient (CLI) | payer MEDICARE, BC ==
[~2021-07-30] MED LIST changes: +Amitriptyline H10 MG PO; +CIPR250 PO; +TEMA15 PO; +Valium5 MG PO
[2021-07-30 18:41] LABS: Hematocrit 35.2 % (33.0-51.0); Hemoglobin 12.1 g/dL (11.5-16.0); Mean Corpuscular HGB 32.5 pg (26.0-34.0); Mean Corpuscular HGB Conc 34.4 g/dL (31.5-36.5); Mean Corpuscular Volume 95 fL (80-100); Mean Platelet Volume 9.8 fL (9.1-12.4); Platelet Count 184 K/mm3 (150-400); RDW Coefficient Variation 11.9 % (11.7-14.2); Red Blood Cell Count 3.72 M/mm3 (3.80-5.20); White Blood Cell Count 3.29 K/mm3 (4.00-11.30)
[2021-07-30 18:43] LABS: Bilirubin, Urine Neg (Neg); Blood, Urine 1+ (Neg); Glucose Qualitative, Urine Neg (Neg); Ketones, Urine Neg (Neg); Leukocyte Esterase, Urine Neg (Neg); Nitrite, Urine Neg (Neg); Protein, Urine 3+ (Neg); Urobilinogen, Urine NORM (Normal)
[2021-07-30 18:54] LABS: Anion Gap 1 mmol/L (6-16); Blood Urea Nitrogen 17 mg/dL (8-24); Bun/Creatinine Ratio 33.1 (12.0-20.0); CO2, Blood 40 mmol/L (21-32); Calcium, Blood 8.9 mg/dL (8.5-10.1); Chloride, Blood 82 mmol/L (98-108); Creatinine, Blood 0.51 mg/dL (0.40-1.00); Glomerular Filtration Rate >60 (60-); Glucose, Blood 125 mg/dL (70-99); Sodium, Blood 123 mmol/L (136-145)
[2021-07-30 18:59] LABS: Appearance, Urine Hazy (Clear); Color, Urine Yellow (P-Yellow)
[2021-07-30 19:01] LABS: Squamous Epithelial Cells Few /hpf (Few)
[2021-07-30 19:02] LABS: Bacteria Few /hpf; Calcium Oxalate Crystals Many /hpf
== END | disposition home or self-care (01) ==
LOC: LAB 15:00 → LAB SHORT 15:00 → LAB HH 15:00
PROVIDERS: Family Medicine
DX: E87.6 Hypokalemia (principal); E87.1 Hypo-osmolality and hyponatremia; N39.0 Urinary tract infection, site not specified; R39.9 Unspecified symptoms and signs involving the genitourinary system
CPT/HCPCS: 80048; 81001; 85027; 87086

== ENCOUNTER 2021-08-02 10:01 | Emergency (ER) | payer MEDICARE, BC ==
[~2021-08-02] VITALS: Ht 149.9 cm; Wt 44.0 kg
[~2021-08-02 10:01] MED LIST changes: -Valium5 MG PO
[2021-08-02 10:24] LABS: BASOPHILS ABSOLUTE AUTO 0.06 K/mm3 (0.00-0.23); BASOPHILS PERCENT AUTO 2 % (0-2); EOSINOPHILS ABSOLUTE AUTO 0.01 K/mm3 (0.00-0.68); EOSINOPHILS PERCENT AUTO 0 % (0-6); Hematocrit 37.5 % (33.0-51.0); Hemoglobin 12.8 g/dL (11.5-16.0); IMMATURE GRAN ABSOLUTE AUTO 0.01 K/mm3 (0.00-0.10); IMMATURE GRAN PERCENT AUTO 0 % (0-1); LYMPHOCYTES ABSOLUTE AUTO 0.47 K/mm3 (0.84-5.20); LYMPHOCYTES PERCENT AUTO 15 % (21-46); MONOCYTES ABSOLUTE AUTO 0.32 K/mm3 (0.16-1.47); MONOCYTES PERCENT AUTO 10 % (4-13); Mean Corpuscular HGB 32.1 pg (26.0-34.0); Mean Corpuscular HGB Conc 34.1 g/dL (31.5-36.5); Mean Corpuscular Volume 94 fL (80-100); Mean Platelet Volume 9.2 fL (9.1-12.4); NEUTROPHILS ABSOLUTE AUTO 2.32 K/mm3 (1.96-9.15); NEUTROPHILS PERCENT AUTO 73 % (41-73); Platelet Count 177 K/mm3 (150-400); RDW Coefficient Variation 12.1 % (11.7-14.2); RDW Standard Deviation 42.3 fL (35.1-46.3); Red Blood Cell Count 3.99 M/mm3 (3.80-5.20); White Blood Cell Count 3.19 K/mm3 (4.00-11.30)
[2021-08-02 10:48] LABS: Alanine Aminotransfer (ALT/SGP 27 U/L (12-78); Albumin, Blood 4.1 g/dL (3.4-5.0); Albumin/Globulin Ratio 1.3 (0.8-1.8); Alk Phos 76 U/L (50-136); Anion Gap 6 mmol/L (6-16); Aspartate Aminotrans (AST/SGOT 26 U/L (12-37); Bilirubin, Total 0.6 mg/dL (0.1-1.0); Blood Urea Nitrogen 19 mg/dL (8-24); Bun/Creatinine Ratio 34.2 (12.0-20.0); CO2, Blood 39 mmol/L (21-32); Calcium, Blood 9.7 mg/dL (8.5-10.1); Chloride, Blood 83 mmol/L (98-108); Creatinine, Blood 0.56 mg/dL (0.40-1.00); Globulin, Blood 3.1 g/dL (2.2-4.0); Glomerular Filtration Rate >60 (60-); Glucose, Blood 85 mg/dL (70-99); Magnesium, Blood 1.7 mg/dL (1.6-2.4); Potassium, Blood 4.2 mmol/L (3.5-5.5); Sodium, Blood 128 mmol/L (136-145); Total Protein, Blood 7.2 g/dL (6.4-8.2)
[2021-08-02] MEDS ORDERED: TEMA15 PO (14:33)
[2021-08-02] MEDS ORDERED: Valium5 MG PO (14:33)
== END 2021-08-02 16:08 | disposition home or self-care (01) ==
LOC: ER 10:01
PROVIDERS: Physician Assistant
DX: F03.90 Unspecified dementia, unspecified severity, without behavioral disturbance, psychotic disturbance, mood disturbance, and anxiety (principal); F41.9 Anxiety disorder, unspecified; E87.1 Hypo-osmolality and hyponatremia; J44.9 Chronic obstructive pulmonary disease, unspecified; I10 Essential (primary) hypertension; K21.9 Gastro-esophageal reflux disease without esophagitis; Z91.013 Allergy to seafood; Z91.018 Allergy to other foods; Z88.0 Allergy status to penicillin; Z88.2 Allergy status to sulfonamides; Z91.048 Other nonmedicinal substance allergy status; Z88.1 Allergy status to other antibiotic agents; Z91.011 Allergy to milk products; Z88.5 Allergy status to narcotic agent; Z79.899 Other long term (current) drug therapy
CPT/HCPCS: 70450; 80053; 83735; 85025; 93005; 93010; 99285-25